=== PATIENT | female | born 1960 ===

== ENCOUNTER → 2018-05-28 | Outpatient (CLI) | payer MEDICAID ==
[~2018-05-28] MED LIST: ASCO500T8 PO; ASPI-496 PO; CALC-112 PO; EDOX15TA PO; FELO10TA PO; GABA-827 PO; HYDR12.53 PO; LOSA100T7 PO; LOSA50TA7 PO; METF10002 PO; METF500T17 PO; OMEP10CA4 PO; OXYC10TA6 PO
[2018-05-28 14:17] LABS: BASOPHILS % (AUTO) 0 % (0-1); EOSINOPHILS # (AUTO) 0.04 x10^3/uL (0-0.4); EOSINOPHILS % (AUTO) 1 % (1-7); LYMPHOCYTES % (AUTO) 24 % (22-44); MD NO; MEAN CORPUSCULAR HEMOGLOBIN 30.4 pg (27.0-34.8); MEAN CORPUSCULAR HGB CONC 34.5 g/dL (32.4-35.8); MEAN CORPUSCULAR VOLUME 88.3 fL (80-100); MEAN PLATELET VOLUME 8.3 fL (7.4-10.4); MONOCYTES # (AUTO) 0.24 x10^3/uL (0.2-0.8); MONOCYTES % (AUTO) 5 % (2-9); NEUTROPHILS # (AUTO) 3.52 x10^3/uL (1.8-6.8); NEUTROPHILS % (AUTO) 70 % (42-75); PLATELET COUNT 132 x10^3/uL (130-400); RED BLOOD COUNT 4.48 x10^6/uL (3.82-5.3); RED CELL DISTRIBUTION WIDTH 14.7 % (9.6-15.2)
[2018-05-28 14:23] LABS: INTERNATIONAL NORMALIZED RATIO 1.06 (0.93-1.1)
[2018-05-28 14:27] LABS: ANION GAP 9 mmol/L (5-15); CALCIUM 9.4 mg/dL (8.5-10.1); CHLORIDE 109 mmol/L (98-107)
[2018-05-28 14:30] LABS: ALANINE AMINOTRANSFERASE 29 U/L (12-78); ALKALINE PHOSPHATASE 132 U/L (45-117); BILIRUBIN,TOTAL 1.1 mg/dL (0.2-1.0); CREATININE 0.74 mg/dL (0.55-1.02); TOTAL PROTEIN 8.7 g/dL (6.4-8.2)
== END | disposition home or self-care (01) ==
LOC: STAR 12:56
PROVIDERS: ATTEND Specialist
DX: Z01.818 Encounter for other preprocedural examination (principal); N93.9 Abnormal uterine and vaginal bleeding, unspecified
CPT/HCPCS: 36415; 71046; 80053; 85025; 85610; 85730; 93005

== ENCOUNTER 2018-06-03 09:39 | Day surgery (SDC) | payer MEDICAID, OTHER ==
[~2018-06-03] VITALS: Ht 170.2 cm; Wt 84.0 kg
[2018-06-03] MEDS ORDERED: BUPIVACAINE/PF-EPI 0.5% 1:200K ONE (09:59)
[2018-06-03] MEDS ORDERED: LACTATED RINGERS 1,000 ML IV SCH (10:06)
[2018-06-03] MEDS ORDERED: LIDOCAINE-MPF 1%, 2ML ONE (10:07)
[2018-06-03] MEDS ORDERED: MIDAZOLAM 1 MG/ML, 2ML ONE (10:08)
[2018-06-03] MEDS ORDERED: FENTANYL PF 100 MCG/2ML ONE (10:08)
[2018-06-03 10:15] VITALS: BP 135/84
[2018-06-03] MEDS ORDERED: FENTANYL PF 100 MCG/2ML IV PRN (10:30)
[2018-06-03] MEDS ORDERED: MIDAZOLAM 1 MG/ML, 2ML IV PRN (10:30)
[2018-06-03] MEDS ORDERED: DIAZEPAM 5 MG/ML, 2ML IVPush PRN (10:30)
[2018-06-03] MEDS ORDERED: LABETALOL 5MG/ML, 20ML IV PRN (10:30)
[2018-06-03] MEDS ORDERED: LORazepam 2 MG/ML, 1ML IVPush PRN (10:30)
[2018-06-03] MEDS ORDERED: LIDOCAINE-MPF 1%, 2ML INFIL ONE (10:30)
[2018-06-03] MEDS ORDERED: DIPHENHYDRAMINE 50 MG/ML, 1ML IVPush PRN (10:30)
[2018-06-03] MEDS ORDERED: OXYcodone 5 MG/5 ML ORAL.SOL UDC PO PRN (10:30)
[2018-06-03] MEDS ORDERED: ACETAMINOPHEN 500 MG TABLET PO ONE (10:30)
[2018-06-03] MEDS ORDERED: ALBUTEROL SULFATE 2.5 MG/3 ML NPPB PRN (10:30)
[2018-06-03] MEDS ORDERED: HYDROmorphone 1 MG/ML, 1ML IV PRN (10:30)
[2018-06-03] MEDS ORDERED: PROCHLORPERAZINE 5 MG/ML, 2ML IV PRN (10:30)
[2018-06-03] MEDS ORDERED: EPHEDRINE 50 MG/ML, 1ML IVPush PRN (10:30)
[2018-06-03] MEDS ORDERED: ONDANSETRON ODT 8 MG PO ONE (10:30)
[2018-06-03] MEDS ORDERED: MORPHINE SULFATE 4 MG/ML, 1ML IVPush PRN (10:30)
[2018-06-03] MEDS ORDERED: KETOROLAC 30 MG/1 ML IV PRN (10:30)
[2018-06-03] MEDS ORDERED: MEPERIDINE/PF 25MG/0.5ML IVPush PRN (10:30)
[2018-06-03] MEDS ORDERED: hydrALAzine 20 MG/ML, 1ML IV PRN (10:30)
[2018-06-03] MEDS ORDERED: METOPROLOL 1 MG/ML, 5ML IV PRN (10:30)
[2018-06-03] MEDS ORDERED: GABAPENTIN 300 MG CAPSULE ONE (10:34)
[2018-06-03] MEDS ORDERED: GABAPENTIN 300 MG CAPSULE PO ONE (11:00)
[2018-06-03] MEDS ORDERED: OXYcodone 5 MG/5 ML ORAL.SOL UDC ONE ×2 (11:33)
[2018-06-03] MEDS ORDERED: IBUPROFEN 200 MG TABLET PO ONE (12:30)
[2018-06-03] MEDS ORDERED: PROPOFOL 10 MG/ML, 20ML ONE (16:02)
[2018-06-03] MEDS ORDERED: PHENYLEPHRINE 10 MG/ML ONE (16:02)
== END 2018-06-03 13:25 | disposition home or self-care (01) ==
LOC: OUT 09:39
PROVIDERS: ATTEND Specialist
DX: N95.0 Postmenopausal bleeding (principal); E11.9 Type 2 diabetes mellitus without complications; Z79.899 Other long term (current) drug therapy; Z88.8 Allergy status to other drugs, medicaments and biological substances; I10 Essential (primary) hypertension; Z98.890 Other specified postprocedural states; Z98.51 Tubal ligation status; Z72.89 Other problems related to lifestyle; Z87.891 Personal history of nicotine dependence
CPT/HCPCS: 58120; 82962; 88305; J2250; J2370; J2704; J3010; J3490; J7120; Q0162

== ENCOUNTER 2018-07-10 14:20 | Outpatient (CLI) | payer MEDICAID | END 2018-07-17 12:35 | disposition home or self-care (01) | LOC: STAR 14:20 | PROVIDERS: ATTEND Specialist | DX: Z02.9 Encounter for administrative examinations, unspecified (principal) ==

== ENCOUNTER 2018-07-15 05:48 | Day surgery (SDC) | payer MEDICAID ==
[~2018-07-15] VITALS: Ht 170.2 cm; Wt 84.0 kg
[2018-07-15] MEDS ORDERED: LACTATED RINGERS 1,000 ML IV SCH (06:18)
[2018-07-15 06:49] VITALS: BP 126/82
[2018-07-15] MEDS ORDERED: MIDAZOLAM 1 MG/ML, 2ML ONE ×2 (07:13→10:05)
[2018-07-15] MEDS ORDERED: FENTANYL PF 250 MCG/5ML ONE (07:14)
[2018-07-15] MEDS ORDERED: HEPARIN 1,000 UNITS/ML, 10ML ONE (07:17)
[2018-07-15] MEDS ORDERED: BUPIVACAINE/PF-EPI 0.25% 1:200K ONE (07:17)
[2018-07-15] MEDS ORDERED: INDOCYANINE GREEN 25 MG VIAL ONE (07:17)
[2018-07-15] MEDS ORDERED: PROPOFOL 10 MG/ML, 50ML ONE (07:35)
[2018-07-15] MEDS ORDERED: PROPOFOL 10 MG/ML, 20ML ONE (08:54)
[2018-07-15] MEDS ORDERED: CEFAZOLIN 1,000 MG ONE (08:54)
[2018-07-15] MEDS ORDERED: DEXAMETHASONE 4 MG/ML, 1ML ONE (08:55)
[2018-07-15] MEDS ORDERED: ROCURONIUM 10MG/ML,5ML ONE (08:55)
[2018-07-15] MEDS ORDERED: SUCCINYLCHOLINE 20 MG/ML, 10ML ONE (08:55)
[2018-07-15] MEDS ORDERED: ONDANSETRON 2MG/ML, 2ML ONE (08:55)
[2018-07-15] MEDS ORDERED: MIDAZOLAM 1 MG/ML, 2ML IV PRN (09:00)
[2018-07-15] MEDS ORDERED: PROMETHAZINE 25 MG/ML, 1ML IV PRN (09:00)
[2018-07-15] MEDS ORDERED: DIPHENHYDRAMINE 50 MG/ML, 1ML IVPush PRN (09:00)
[2018-07-15] MEDS ORDERED: EPHEDRINE 50 MG/ML, 1ML IM PRN (09:00)
[2018-07-15] MEDS ORDERED: ONDANSETRON 2MG/ML, 2ML IV PRN (09:00)
[2018-07-15] MEDS ORDERED: EPHEDRINE 50 MG/ML, 1ML IVPush PRN (09:00)
[2018-07-15] MEDS ORDERED: FENTANYL PF 100 MCG/2ML IV PRN (09:00)
[2018-07-15] MEDS ORDERED: MORPHINE SULFATE 4 MG/ML, 1ML IVPush PRN (09:00)
[2018-07-15] MEDS ORDERED: ONDANSETRON ODT 8 MG PO PRN (09:00)
[2018-07-15] MEDS ORDERED: PROMETHAZINE 25 MG SUPP PR PRN (09:00)
[2018-07-15] MEDS ORDERED: LABETALOL 5MG/ML, 20ML IV PRN (09:00)
[2018-07-15] MEDS ORDERED: MEPERIDINE/PF 25MG/0.5ML IVPush PRN (09:00)
[2018-07-15] MEDS ORDERED: PROMETHAZINE 12.5 MG SUPP PR PRN (09:00)
[2018-07-15] MEDS ORDERED: OXYcodone 5 MG/5 ML ORAL.SOL UDC PO PRN (09:00)
[2018-07-15] MEDS ORDERED: ACETAMINOPHEN 325 MG TABLET PO PRN (09:00)
[2018-07-15] MEDS ORDERED: FENTANYL PF 100 MCG/2ML ONE (10:05)
[2018-07-15] MEDS ORDERED: OXYcodone 5 MG/5 ML ORAL.SOL UDC ONE (10:06)
[2018-07-15] MEDS ORDERED: PROMETHAZINE 25 MG/ML, 1ML ONE (10:07)
[2018-07-15] MEDS ORDERED: MEPERIDINE/PF 50 MG/ML ONE (10:36)
[2018-07-15] MEDS ORDERED: LABETALOL 5MG/ML, 20ML ONE (10:46)
[2018-07-15] MEDS ORDERED: OXYcodone IR 5MG TABLET PO PRN (15:30)
== END 2018-07-15 17:20 | disposition home or self-care (01) ==
LOC: OUT 05:48
PROVIDERS: ATTEND Specialist
DX: D25.0 Submucous leiomyoma of uterus (principal); N93.8 Other specified abnormal uterine and vaginal bleeding; N88.8 Other specified noninflammatory disorders of cervix uteri; J45.909 Unspecified asthma, uncomplicated; K21.9 Gastro-esophageal reflux disease without esophagitis; E11.9 Type 2 diabetes mellitus without complications; I10 Essential (primary) hypertension; Z98.890 Other specified postprocedural states; Z98.51 Tubal ligation status; Z72.89 Other problems related to lifestyle; Z87.891 Personal history of nicotine dependence
CPT/HCPCS: 58571; 74018; 88307; J0330; J0690; J1100; J2250; J2405; J2550; J2704; J3010; J7120; S2900; J1644

== ENCOUNTER 2019-08-27 01:46 | Inpatient (IN) | payer MEDICAID ==
[~2019-08-27] VITALS: Ht 170.2 cm; Wt 85.1 kg
[~2019-08-27 01:46] MED LIST changes: +HYDR12.517 PO; -HYDR12.53 PO; +LOSA100T14 PO; -LOSA100T7 PO; +LOSA50TA14 PO; -LOSA50TA7 PO; -OMEP10CA4 PO; +OMEP10CA5 PO
--- NOTE | 2019-08-27 01:59 | NUR ---
BIB [facility] FOR [facility] THAT HAPPENED 08/25 WITH PAIN AND SWELLING TO THE LEFT KNEE AND RIGHT WRIST. DENIES LOC, HEAD TRAUMA. PAIN 06/19. ALL BED RAILS UP. BLANKETS,PILLOWS, AND WATER PROVIDED PER PT REQUEST. ER SAHIL RYAN IN TO ASSESS PT
[2019-08-27] MEDS ORDERED: ONDANSETRON 2MG/ML, 2ML ONE ×2 (02:09→10:16)
[2019-08-27] MEDS ORDERED: MORPHINE SULFATE 4 MG/ML, 1ML ONE ×3 (02:09→10:16)
[2019-08-27] MEDS ORDERED: MORPHINE SULFATE 4 MG/ML, 1ML IVPush ONE ×2 (02:30→06:30)
[2019-08-27] MEDS ORDERED: HYDROcodone/APAP 5/325 TABLET PO ONE (02:30)
[2019-08-27] MEDS ORDERED: ONDANSETRON 2MG/ML, 2ML IVPush ONE (02:30)
--- NOTE | 2019-08-27 03:12 | NUR ---
ER SAHIL RYAN STATES OK TO GIVE MORPHINE AND ZOFRAN. MEDIACTIONS ADMINITERED FOR PAIN AND PT VERBALIZED RELIEF OF PAIN, ALTHOUGH PAIN NOT COMPLETELY GONE.
[2019-08-27] MEDS ORDERED: LIDOCAINE-MPF 1%, 5ML ONE (03:50)
[2019-08-27] MEDS ORDERED: LIDOCAINE-MPF 1%, 5ML INFIL ONE (04:00)
--- NOTE | 2019-08-27 04:11 | NUR ---
ER SAHIL RYAN IN TO DRAIN FUID FROM KNEE. 120 CC DARK RED FLUID DRAINED FROM LEFT KNEE
[2019-08-27 04:30] LABS: MEAN CORPUSCULAR HEMOGLOBIN 28.9 pg (27.0-34.8); MEAN CORPUSCULAR HGB CONC 32.5 g/dL (32.4-35.8); MEAN CORPUSCULAR VOLUME 88.9 fL (80-100); RED CELL DISTRIBUTION WIDTH 15.4 % (9.6-15.2)
[2019-08-27] MEDS ORDERED: SODIUM CHLORIDE FLUSH 10ML SYR IVF ONE (04:30)
[2019-08-27 04:40] LABS: ALBUMIN 3.4 g/dL (3.4-5.0); ANION GAP 5 mmol/L (5-15); CALCIUM 8.6 mg/dL (8.5-10.1); CHLORIDE 102 mmol/L (98-107)
[2019-08-27 04:41] LABS: CREATININE 0.67 mg/dL (0.55-1.02)
[2019-08-27 04:51] LABS: BASOPHILS # (AUTO) 0.01 x10^3/uL (0-0.1); BASOPHILS % (AUTO) 0 % (0-1); EOSINOPHILS # (AUTO) 0.07 x10^3/uL (0-0.4); EOSINOPHILS % (AUTO) 1 % (1-7); LYMPHOCYTES # (AUTO) 0.46 x10^3/uL (1-3.4); LYMPHOCYTES % (AUTO) 8 % (22-44); MD SCAN; MEAN PLATELET VOLUME 6.8 fL (7.4-10.4); MONOCYTES # (AUTO) 0.54 x10^3/uL (0.2-0.8); MONOCYTES % (AUTO) 10 % (2-9); NEUTROPHILS # (AUTO) 4.35 x10^3/uL (1.8-6.8); NEUTROPHILS % (AUTO) 80 % (42-75); PLATELET COUNT 98 x10^3/uL (130-400)
[2019-08-27] MEDS ORDERED: FELO5TAB PO (05:02)
--- NOTE | 2019-08-27 05:05 | NUR ---
PT HAS NOT BEEN ABLE TO GET UP TO GO TO THE BATHROOM TWICE BECAUSE OF LIMITED MOBILITY. BY THE TIME SHE TELLS ME SHE NEEDS TO URINATE, SHE HAS ALREADY URINATED IN THE BED. PURE WICK IN PLACE AND PT EDUCATED ON ITS USE.
--- NOTE | 2019-08-27 06:35 | NUR ---
PT PROVIDED HOSPITAL BED. MEDICATED FOR PAIN PER EMAR.
--- NOTE | 2019-08-27 07:04 | NUR ---
bedside report to kristopher hendrix
--- NOTE | 2019-08-27 07:15 | NUR ---
ASSUMED CARE. PT LYING IN HOSPITAL BED AWAITING ROOM ASSIGNMENT. LEFT KNEE HAS FABIO BANDAGE IN PLACE WITH ICE PACK ON TOP. RIGHT FA SPLINTED WITH GOOD CMS.
--- NOTE | 2019-08-27 08:15 | NUR ---
HOSPITALIST AT BEDSIDE
[2019-08-27] MEDS ORDERED: DOCUSATE 100 MG CAPSULE PO PRN (08:30)
[2019-08-27] MEDS ORDERED: IBUPROFEN 600 MG TABLET PO PRN (08:30)
[2019-08-27] MEDS ORDERED: ONDANSETRON 2MG/ML, 2ML IVPush PRN (08:30)
[2019-08-27] MEDS ORDERED: BISACODYL 10 MG SUPP PR PRN (08:30)
[2019-08-27] MEDS ORDERED: ACETAMINOPHEN 325 MG TABLET PO PRN (08:30)
[2019-08-27] MEDS ORDERED: ENOXAPARIN 40 MG/0.4 ML SQ SCH (08:30)
[2019-08-27] MEDS ORDERED: POLYETHYLENE GLYCOL 17 GM PACKET PO PRN (08:30)
--- NOTE | 2019-08-27 08:45 | NUR ---
OFF FLOOR TO MRI
[2019-08-27] MEDS ORDERED: EDOXABAN TOSYLATE HOMEMEDPO SCH (09:00)
--- NOTE | 2019-08-27 10:00 | NUR ---
vs updated on return from mri
[2019-08-27] MEDS ORDERED: IBUPROFEN 600 MG TABLET ONE (10:02)
[2019-08-27] MEDS ORDERED: DOCUSATE 100 MG CAPSULE ONE (10:03)
[2019-08-27] MEDS ORDERED: OXYcodone IR 5MG TABLET ONE (10:03)
[2019-08-27] MEDS ORDERED: GABAPENTIN 400 MG CAPSULE ONE (10:03)
[2019-08-27] MEDS: metFORMIN 500 MG TABLET PO SCH ×2 (10:05→22:23)
[2019-08-27] MEDS: OXYcodone IR 5MG TABLET PO PRN (10:06)
[2019-08-27] MEDS: GABAPENTIN 400 MG CAPSULE PO SCH ×2 (10:06→22:24)
[2019-08-27] MEDS: ASCORBIC ACID 500 MG TABLET PO SCH (10:06)
--- NOTE | 2019-08-27 10:13 | NUR ---
medicated for left knee pain as noted on nov. pillow placed under right hip to place pt on left side
[2019-08-27] MEDS: SODIUM CHLORIDE 0.9% 1,000 ML IV SCH ×2 (10:20→23:00)
[2019-08-27] MEDS: morphine SULFATE 10 MG/ML, 1ML IVPush PRN ×2 (10:21→19:59)
--- NOTE | 2019-08-27 10:45 | NUR ---
PT USED INCENTIVE SPIROMETER PER DIRECTIONS. STATES PAIN IMPROVED SINCE MEDICATED FOR SAME
--- NOTE | 2019-08-27 11:02 | NUR ---
REPORT TO DEAN BOOTH
--- NOTE | 2019-08-27 11:03 | NUR ---
PT REPORT FROM LEOBARDO VIEYRA. PT CARE TO BE ASSUMED. PT TO BE ADMITTED - WAITING FOR ROOM ASSIGNMENT.
--- NOTE | 2019-08-27 11:30 | NUR ---
RESTING QUIETLY ON HOSPTITAL BED
--- NOTE | 2019-08-27 12:30 | NUR ---
SOME MORNING MEDS NOT GIVEN BY LEOBARDO VIEYRA. CONSULTED AZALIA; SHE'S UNSURE IF PT HAS THE NON-FORMULARY MEDS W/ HER. THIS RN WILL CONSULT PT AND THEN PHARMACY PRN.
--- NOTE | 2019-08-27 13:00 | NUR ---
PT DOZING; EASILY AWAKENED. NS INFUSING; IV SITE PATENT. RIGHT HAND/FOREARM SPLINTED: + CMS FINGERS. C/O KNEE PAIN. BREAKFAST TRAY 75% CONSUMED; REQUESTED LUNCH TRAY - WILL BE ORDERED. PT STATES SHE LEFT HER MEDICINES AT HOME.
--- NOTE | 2019-08-27 13:10 | NUR ---
ADA LUNCH TRAY ORDERED.
--- NOTE | 2019-08-27 13:50 | NUR ---
CALLED PHARMACY. PER PHARMACIST, [facility] DOESN'T HAVE FELODIPINE ER OR EDOXABAN TOSYLATE - SUGGESTED THAT PT HAVE MED BROUGHT FROM HOME. PHARMACIST WILL SEND LOSARTAN AND CALCIUM.
[2019-08-27] MEDS ORDERED: ACETAMINOPHEN 325 MG TABLET ONE (13:54)
--- NOTE | 2019-08-27 14:05 | NUR ---
PHARMACIST DELIVERED AMLODIPINE TO THIS RN; STATED MED IS SUBSTITUTION FOR FELODIPINE.
[2019-08-27] MEDS: CALCIUM/VITAMIN D3 250-125 TABLET PO SCH (14:06)
[2019-08-27] MEDS: LOSARTAN 50MG TABLET PO SCH (14:07)
[2019-08-27] MEDS: AMLODIPINE 5 MG TABLET PO SCH (14:09)
--- NOTE | 2019-08-27 14:11 | NUR ---
PT REFUSING TYLENOL - STATES "I HAVE A BAD LIVER". LOSARTAN, CALCIUM AND AMLODIPINE (SUBSTITUTION FOR FELODIPINE) GIVEN PER EMAR.
--- NOTE | 2019-08-27 14:23 | NUR ---
PT REPORT TO LEOBARDO LARA FOR ROOM 378
--- NOTE | 2019-08-27 15:47 | NUR ---
LATE NOTE: NS INFUSING UPON TRANSFER TO FLOOR AT 1505
[2019-08-27] MEDS ORDERED: MAGNESIUM SULFATE PMX 2GM/50ML 50 ML IV ONE (17:00)
[2019-08-27 19:25] VITALS: BP 123/71
[2019-08-27] MEDS: APIXABAN 5 MG TABLET PO SCH (22:24)
[2019-08-28 01:48] VITALS: BP 148/86
[2019-08-28] MEDS: morphine SULFATE 10 MG/ML, 1ML IVPush PRN (05:43)
[2019-08-28 07:13] LABS: ALBUMIN 2.5 g/dL (3.4-5.0); ANION GAP 7 mmol/L (5-15); CALCIUM 7.8 mg/dL (8.5-10.1); CHLORIDE 106 mmol/L (98-107)
[2019-08-28 07:17] LABS: ALANINE AMINOTRANSFERASE 19 U/L (12-78); ALKALINE PHOSPHATASE 92 U/L (45-117); BILIRUBIN,TOTAL 1.2 mg/dL (0.2-1.0); CREATININE 0.59 mg/dL (0.55-1.02); TOTAL PROTEIN 6.2 g/dL (6.4-8.2)
[2019-08-28 07:35] LABS: MEAN CORPUSCULAR HEMOGLOBIN 29.3 pg (27.0-34.8); MEAN CORPUSCULAR VOLUME 88.6 fL (80-100); MEAN PLATELET VOLUME 7.3 fL (7.4-10.4); PLATELET COUNT 79 x10^3/uL (130-400); RED BLOOD COUNT 4.27 x10^6/uL (3.82-5.3); RED CELL DISTRIBUTION WIDTH 15.3 % (9.6-15.2)
[2019-08-28 08:37] LABS: BASOPHILS # (AUTO) 0.02 x10^3/uL (0-0.1); BASOPHILS % (AUTO) 0 % (0-1); EOSINOPHILS # (AUTO) 0.03 x10^3/uL (0-0.4); EOSINOPHILS % (AUTO) 1 % (1-7); LYMPHOCYTES # (AUTO) 0.76 x10^3/uL (1-3.4); LYMPHOCYTES % (AUTO) 17 % (22-44); MD SCAN; MONOCYTES # (AUTO) 0.41 x10^3/uL (0.2-0.8); MONOCYTES % (AUTO) 9 % (2-9); NEUTROPHILS # (AUTO) 3.22 x10^3/uL (1.8-6.8); NEUTROPHILS % (AUTO) 72 % (42-75)
[2019-08-28 08:55] VITALS: BP 147/88
[2019-08-28] MEDS: ASCORBIC ACID 500 MG TABLET PO SCH (09:01)
[2019-08-28] MEDS: LOSARTAN 50MG TABLET PO SCH (09:02)
[2019-08-28] MEDS: metFORMIN 500 MG TABLET PO SCH ×2 (09:02→19:35)
[2019-08-28] MEDS: CALCIUM/VITAMIN D3 250-125 TABLET PO SCH (09:02)
[2019-08-28] MEDS: APIXABAN 5 MG TABLET PO SCH ×2 (09:02→19:35)
[2019-08-28] MEDS: AMLODIPINE 5 MG TABLET PO SCH (09:03)
[2019-08-28] MEDS: GABAPENTIN 400 MG CAPSULE PO SCH ×2 (09:13→19:35)
[2019-08-28] MEDS: OXYcodone IR 5MG TABLET PO PRN ×3 (09:51→19:36)
[2019-08-28 13:00] VITALS: BP 143/88
[2019-08-28 19:23] VITALS: BP 116/71
[2019-08-29] MEDS: OXYcodone IR 5MG TABLET PO PRN ×5 (01:53→21:39)
[2019-08-29 02:03] VITALS: BP 144/84
[2019-08-29 06:17] LABS: ALBUMIN 2.3 g/dL (3.4-5.0); ANION GAP 6 mmol/L (5-15); CALCIUM 8.1 mg/dL (8.5-10.1); CHLORIDE 109 mmol/L (98-107)
[2019-08-29 06:20] LABS: ALANINE AMINOTRANSFERASE 18 U/L (12-78); ALKALINE PHOSPHATASE 93 U/L (45-117); BILIRUBIN,TOTAL 1.3 mg/dL (0.2-1.0); CREATININE 0.48 mg/dL (0.55-1.02); TOTAL PROTEIN 6.1 g/dL (6.4-8.2)
[2019-08-29 06:28] LABS: MEAN CORPUSCULAR HEMOGLOBIN 29.2 pg (27.0-34.8); MEAN CORPUSCULAR HGB CONC 32.8 g/dL (32.4-35.8); MEAN CORPUSCULAR VOLUME 88.9 fL (80-100); MEAN PLATELET VOLUME 7.4 fL (7.4-10.4); PLATELET COUNT 84 x10^3/uL (130-400); RED BLOOD COUNT 4.12 x10^6/uL (3.82-5.3); RED CELL DISTRIBUTION WIDTH 15.1 % (9.6-15.2)
[2019-08-29 07:05] LABS: BASOPHILS # (AUTO) 0.02 x10^3/uL (0-0.1); BASOPHILS % (AUTO) 1 % (0-1); EOSINOPHILS # (AUTO) 0.05 x10^3/uL (0-0.4); EOSINOPHILS % (AUTO) 1 % (1-7); LYMPHOCYTES # (AUTO) 0.94 x10^3/uL (1-3.4); LYMPHOCYTES % (AUTO) 24 % (22-44); MD SCAN; MONOCYTES # (AUTO) 0.38 x10^3/uL (0.2-0.8); MONOCYTES % (AUTO) 10 % (2-9); NEUTROPHILS # (AUTO) 2.52 x10^3/uL (1.8-6.8); NEUTROPHILS % (AUTO) 64 % (42-75)
[2019-08-29 08:35] VITALS: BP 148/87
[2019-08-29] MEDS: LOSARTAN 50MG TABLET PO SCH (08:38)
[2019-08-29] MEDS: APIXABAN 5 MG TABLET PO SCH ×2 (08:38→20:04)
[2019-08-29] MEDS: metFORMIN 500 MG TABLET PO SCH ×2 (08:39→20:04)
[2019-08-29] MEDS: AMLODIPINE 5 MG TABLET PO SCH (08:39)
[2019-08-29] MEDS: CALCIUM/VITAMIN D3 250-125 TABLET PO SCH (08:39)
[2019-08-29] MEDS: GABAPENTIN 400 MG CAPSULE PO SCH ×2 (08:39→20:04)
[2019-08-29] MEDS: ASCORBIC ACID 500 MG TABLET PO SCH (08:39)
[2019-08-29 15:51] VITALS: BP 129/69
[2019-08-29 20:45] VITALS: BP 123/74
[2019-08-30 02:11] VITALS: BP 139/84
[2019-08-30] MEDS: OXYcodone IR 5MG TABLET PO PRN ×4 (04:42→19:49)
[2019-08-30 05:55] LABS: ALBUMIN 2.4 g/dL (3.4-5.0); ANION GAP 5 mmol/L (5-15); CALCIUM 8.2 mg/dL (8.5-10.1); CHLORIDE 110 mmol/L (98-107)
[2019-08-30 06:00] LABS: ALANINE AMINOTRANSFERASE 16 U/L (12-78); ALKALINE PHOSPHATASE 103 U/L (45-117); BILIRUBIN,TOTAL 1.3 mg/dL (0.2-1.0); CREATININE 0.47 mg/dL (0.55-1.02); TOTAL PROTEIN 6.5 g/dL (6.4-8.2)
[2019-08-30 06:23] LABS: MEAN CORPUSCULAR HEMOGLOBIN 29.3 pg (27.0-34.8); MEAN CORPUSCULAR HGB CONC 32.8 g/dL (32.4-35.8); MEAN CORPUSCULAR VOLUME 89.2 fL (80-100); MEAN PLATELET VOLUME 7.5 fL (7.4-10.4); PLATELET COUNT 94 x10^3/uL (130-400); RED BLOOD COUNT 4.37 x10^6/uL (3.82-5.3); RED CELL DISTRIBUTION WIDTH 14.8 % (9.6-15.2)
[2019-08-30 07:10] LABS: BASOPHILS # (AUTO) 0.03 x10^3/uL (0-0.1); BASOPHILS % (AUTO) 1 % (0-1); EOSINOPHILS # (AUTO) 0.13 x10^3/uL (0-0.4); EOSINOPHILS % (AUTO) 3 % (1-7); LYMPHOCYTES # (AUTO) 0.98 x10^3/uL (1-3.4); LYMPHOCYTES % (AUTO) 23 % (22-44); MD SCAN; MONOCYTES # (AUTO) 0.41 x10^3/uL (0.2-0.8); MONOCYTES % (AUTO) 10 % (2-9); NEUTROPHILS # (AUTO) 2.64 x10^3/uL (1.8-6.8); NEUTROPHILS % (AUTO) 63 % (42-75)
[2019-08-30 08:05] VITALS: BP 113/71
[2019-08-30 10:03] VITALS: BP 130/90
[2019-08-30] MEDS: APIXABAN 5 MG TABLET PO SCH ×2 (10:04→19:49)
[2019-08-30] MEDS: LOSARTAN 50MG TABLET PO SCH (10:04)
[2019-08-30] MEDS: ASCORBIC ACID 500 MG TABLET PO SCH (10:05)
[2019-08-30] MEDS: AMLODIPINE 5 MG TABLET PO SCH (10:05)
[2019-08-30] MEDS: metFORMIN 500 MG TABLET PO SCH ×2 (10:05→19:49)
[2019-08-30] MEDS: CALCIUM/VITAMIN D3 250-125 TABLET PO SCH (10:05)
[2019-08-30] MEDS: GABAPENTIN 400 MG CAPSULE PO SCH ×2 (10:05→19:49)
[2019-08-30 13:55] VITALS: BP 110/68
[2019-08-30 18:37] VITALS: BP 122/71
[2019-08-31] MEDS: OXYcodone IR 5MG TABLET PO PRN ×6 (00:12→23:34)
[2019-08-31 01:20] VITALS: BP_SYST 122; BP_SYST 155; BP_DIAS 67
[2019-08-31 09:08] VITALS: BP 125/79
[2019-08-31] MEDS: LOSARTAN 50MG TABLET PO SCH (09:35)
[2019-08-31] MEDS: metFORMIN 500 MG TABLET PO SCH ×2 (09:36→17:14)
[2019-08-31] MEDS: APIXABAN 5 MG TABLET PO SCH ×2 (09:36→19:20)
[2019-08-31] MEDS: GABAPENTIN 400 MG CAPSULE PO SCH ×2 (09:36→19:22)
[2019-08-31] MEDS: ASCORBIC ACID 500 MG TABLET PO SCH (09:37)
[2019-08-31] MEDS: CALCIUM/VITAMIN D3 250-125 TABLET PO SCH (09:37)
[2019-08-31] MEDS: AMLODIPINE 5 MG TABLET PO SCH (09:37)
[2019-08-31 16:17] VITALS: BP 136/75
[2019-08-31 19:39] VITALS: BP 107/61
[2019-09-01 02:01] VITALS: BP 120/66
[2019-09-01] MEDS: OXYcodone IR 5MG TABLET PO PRN ×3 (06:18→14:55)
[2019-09-01 09:03] VITALS: BP 132/83
[2019-09-01] MEDS ORDERED: LOSARTAN 25MG TABLET PO SCH (09:25)
[2019-09-01] MEDS: GABAPENTIN 400 MG CAPSULE PO SCH (09:26)
[2019-09-01] MEDS: APIXABAN 5 MG TABLET PO SCH (09:26)
[2019-09-01] MEDS: AMLODIPINE 5 MG TABLET PO SCH (09:26)
[2019-09-01] MEDS: metFORMIN 500 MG TABLET PO SCH (09:26)
[2019-09-01] MEDS: ASCORBIC ACID 500 MG TABLET PO SCH (09:27)
[2019-09-01] MEDS: CALCIUM/VITAMIN D3 250-125 TABLET PO SCH (09:27)
[2019-09-01] MEDS ORDERED: OXYC5TAB3 PO (13:01)
[2019-09-01] MEDS ORDERED: APIX5TAB PO (13:01)
[2019-09-01 15:19] VITALS: BP 133/80
== END 2019-09-01 16:14 | DRG 384 ==
LOC: ED 04:39 → EDIP 04:57 → 3N 15:18
PROVIDERS: ADMIT Internal Medicine; ATTEND Internal Medicine
PROC: 0S9D3ZZ Drainage of Left Knee Joint, Percutaneous Approach (ICD-10-PCS; principal; 2019-08-27)
PROC: 2W3EX1Z Immobilization of Right Hand using Splint (ICD-10-PCS; 2019-08-27)
DX: S80.02XA Contusion of left knee, initial encounter (principal); D68.69 Other thrombophilia; D69.59 Other secondary thrombocytopenia; E11.42 Type 2 diabetes mellitus with diabetic polyneuropathy; I48.91 Unspecified atrial fibrillation; S83.92XA Sprain of unspecified site of left knee, initial encounter; S63.501A Unspecified sprain of right wrist, initial encounter; B15.9 Hepatitis A without hepatic coma; F17.210 Nicotine dependence, cigarettes, uncomplicated; F32.9 Major depressive disorder, single episode, unspecified; G89.11 Acute pain due to trauma; S62.001A Unspecified fracture of navicular [scaphoid] bone of right wrist, initial encounter for closed fracture; G89.29 Other chronic pain; M54.9 Dorsalgia, unspecified; B19.20 Unspecified viral hepatitis C without hepatic coma; I10 Essential (primary) hypertension; J44.9 Chronic obstructive pulmonary disease, unspecified; M17.12 Unilateral primary osteoarthritis, left knee; Z96.653 Presence of artificial knee joint, bilateral; W01.0XXA Fall on same level from slipping, tripping and stumbling without subsequent striking against object, initial encounter; Y92.009 Unspecified place in unspecified non-institutional (private) residence as the place of occurrence of the external cause; Y93.89 Activity, other specified; Y99.8 Other external cause status; Z90.710 Acquired absence of both cervix and uterus; Z85.42 Personal history of malignant neoplasm of other parts of uterus; Z82.0 Family history of epilepsy and other diseases of the nervous system
CPT/HCPCS: 20610; 29125; 36415; 76705; 80048; 80053; 82040; 83735; 84100; 85025; 86704; 86706; 86708; 86709; 86803; 87340; 87521; 87806; 96374; 96375; 99285; G0378; J2405; G0475; J2270; J3475; J7030

== ENCOUNTER 2020-05-09 23:41 | Emergency (ER) | payer MEDICAID ==
[~2020-05-09] VITALS: Ht 170.2 cm; Wt 84.1 kg
[~2020-05-09 23:41] MED LIST changes: +APIX5TAB PO; -FELO10TA PO; +FELO10TA4 PO; +FELO5TAB4 PO; +OXYC5TAB3 PO
[2020-05-10] MEDS ORDERED: ACETAMINOPHEN 325 MG TABLET PO ONE
[2020-05-10] MEDS ORDERED: MORPHINE SULFATE 4 MG/ML, 1ML IVPush PRN
[2020-05-10] MEDS ORDERED: ONDANSETRON 2MG/ML, 2ML IVPush ONE
[2020-05-10] MEDS ORDERED: SODIUM CHLORIDE 0.9% 1,000ML IVBOLUS ONE
--- NOTE | 2020-05-10 00:09 | NUR ---
PT BIB EMS. COMPLAINTS OF INCREASING LEFT LOWER LEG PAIN, PATIENT HAD KNEE REPLACEMENT LAST SUNDAY (05/03/2020). PATIENT HAD FEVER PER EMS 101.1. GIVEN 1,000 MG TYLENOL. PATIENT IN 05/20 PAIN, AND HAVING DIFFICULTY MOVING LEFT LEG.
--- NOTE | 2020-05-10 00:10 | NUR ---
preceptor RN: assisted with care on behalf luciano primary RN. pt positioning for comfort. IV staretd with blood draw dressing has been removed form L knee. colt intact. wound well-approximated. no drainage. EKG at bedside
[2020-05-10 00:40] LABS: BASOPHILS # (AUTO) 0.04 x10^3/uL (0-0.1); BASOPHILS % (AUTO) 1 % (0-1); EOSINOPHILS # (AUTO) 0.08 x10^3/uL (0-0.4); EOSINOPHILS % (AUTO) 2 % (1-7); LYMPHOCYTES # (AUTO) 0.71 x10^3/uL (1-3.4); LYMPHOCYTES % (AUTO) 17 % (22-44); MD NO; MEAN CORPUSCULAR HEMOGLOBIN 28.2 pg (27.0-34.8); MEAN CORPUSCULAR HGB CONC 33.3 g/dL (32.4-35.8); MEAN CORPUSCULAR VOLUME 84.7 fL (80-100); MEAN PLATELET VOLUME 7.7 fL (7.4-10.4); MONOCYTES # (AUTO) 0.51 x10^3/uL (0.2-0.8); MONOCYTES % (AUTO) 12 % (2-9); NEUTROPHILS # (AUTO) 2.83 x10^3/uL (1.8-6.8); NEUTROPHILS % (AUTO) 68 % (42-75); PLATELET COUNT 200 x10^3/uL (130-400); RED BLOOD COUNT 2.72 x10^6/uL (3.82-5.3); RED CELL DISTRIBUTION WIDTH 15.8 % (9.6-15.2)
--- NOTE | 2020-05-10 00:50 | NUR ---
preceptor RN: lab at bedside to draw
[2020-05-10 00:52] LABS: ALBUMIN 2.6 g/dL (3.4-5.0); ANION GAP 6 mmol/L (5-15); CALCIUM 8.6 mg/dL (8.5-10.1); CHLORIDE 109 mmol/L (98-107); CREATININE 0.58 mg/dL (0.55-1.02)
[2020-05-10 00:56] LABS: TROPONIN I < 0.015 ng/mL (0.000-0.045)
[2020-05-10] MEDS ORDERED: MORPHINE SULFATE 4 MG/ML, 1ML ONE (01:10)
[2020-05-10] MEDS ORDERED: ONDANSETRON 2MG/ML, 2ML ONE (01:10)
--- NOTE | 2020-05-10 01:12 | NUR ---
pt to RAD
--- NOTE | 2020-05-10 01:20 | NUR ---
preceptor RN: pt has been returned to room without scan completion as pt needs assistance to BR. pt assisted to bedside commode. well tolerated
[2020-05-10 01:31] LABS: MICROSCOPIC INDICATED
--- NOTE | 2020-05-10 01:35 | NUR ---
PATIENT TO CT
--- NOTE | 2020-05-10 01:46 | NUR ---
preceptor RN: pt has returned from CT
--- NOTE | 2020-05-10 02:26 | NUR ---
preceptor RN: Dr. Hickey at bedside for recheck
--- NOTE | 2020-05-10 02:34 | NUR ---
preceptor RN: Dr. Garcia has been to bedside for eval of surgical incision.
--- NOTE | 2020-05-10 02:42 | NUR ---
preceptor RN: pt in
[2020-05-10] MEDS ORDERED: OMNIPAQUE 350 MG/ML, 100ML BOTTLE ONE (03:44)
--- NOTE | 2020-05-10 03:59 | NUR ---
preceptor RN: pt assisted to bedside commode. well tolerated chart up for MD recheck
[2020-05-10 04:17] VITALS: BP 128/71
== END 2020-05-10 04:33 | disposition home or self-care (01) ==
LOC: ED 05-10 00:14
DX: R07.89 Other chest pain (principal); R60.0 Localized edema; R50.9 Fever, unspecified; D64.9 Anemia, unspecified; I49.3 Ventricular premature depolarization; R94.31 Abnormal electrocardiogram [ECG] [EKG]; I10 Essential (primary) hypertension; E11.9 Type 2 diabetes mellitus without complications; Z96.652 Presence of left artificial knee joint
CPT/HCPCS: 36415; 71045; 71275; 80048; 81001; 82040; 83605; 84484; 85025; 86140; 87040; 93005; 93970; 96361; 96374; 96375; 99285; J2270; J2405; J7030; Q9967

== ENCOUNTER 2020-12-26 15:53 | Emergency (ER) | payer MEDICAID ==
[~2020-12-26] VITALS: Ht 170.2 cm; Wt 82.6 kg
[~2020-12-26 15:53] MED LIST changes: -OXYC5TAB3 PO; +OXYC5TAB98 PO
[2020-12-26 15:55] VITALS: BP 134/87
== END 2020-12-26 17:41 | disposition home or self-care (01) ==
LOC: ED 17:04
DX: S42.032A Displaced fracture of lateral end of left clavicle, initial encounter for closed fracture (principal); S80.02XA Contusion of left knee, initial encounter; S80.01XA Contusion of right knee, initial encounter; R07.89 Other chest pain; W01.0XXA Fall on same level from slipping, tripping and stumbling without subsequent striking against object, initial encounter; Y93.89 Activity, other specified; Y92.89 Other specified places as the place of occurrence of the external cause; Y99.8 Other external cause status
CPT/HCPCS: 99284